=== PATIENT | male | born 1995 | race Caucasian/White ===

== ENCOUNTER 2018-01-24 02:13 | Emergency (ER) | payer MEDICAID, OTHER ==
[2018-01-24 02:27] VITALS: BP 165/120; PULSE 102; O2SAT 95
--- NOTE | 2018-01-24 02:33 | ERPHSYRPT ---
- History of Present Illness Time Seen by Provider: 01/24/18 02:28 Source: patient Exam Limitations: no limitations Patient Subjective Stated Complaint: Dental pain Triage Nursing Assessment: Patient ambulated into ED and transferred self to bed. Patient A+O X 3. Patient complains of dental pain to very back of left side of jaw. Patient states pain is 10/10. Patient states toothache started today and he was using orajel today, but the pain became unbearable. Oral cavity noted to having a tooth erupting out of the left side bottom gum. Gums noted to bed red and swollen. Physician History: The patient is a 22-year-old male with his mother complaining of worsening left lower wisdom tooth and jaw pain for at least 2 days. It has been a gradual onset. Tonight it is severe and he is not able to sleep. This wisdom tooth has caused him problems in the past but nothing as bad as tonight. He does not have a dentist at this time but will get one. He denies fever or chills. Timing/Duration: gradual onset, days (3) Severity: severe ENT Location: dental Prearrival Treatment: no prearrival treatment Modifying Factors: Improves With: nothing Associated Symptoms: tooth pain, No fever Allergies/Adverse Reactions: Penicillins Allergy (Mild, Verified 01/24/18 02:27) Hx Tetanus, Diphtheria Vaccination/Date Given: Yes Hx Influenza Vaccination/Date Given: No Hx Pneumococcal Vaccination/Date Given: No Immunizations Up to Date: Yes - Review of Systems Constitutional: No Fever, No Chills Eyes: No Symptoms Ears, Nose, & Throat: Mouth Pain Respiratory: No Cough, No Dyspnea Cardiac: No Chest Pain, No Edema, No Syncope Abdominal/Gastrointestinal: No Abdominal Pain, No Nausea, No Vomiting, No Diarrhea Genitourinary Symptoms: No Dysuria Musculoskeletal: No Back Pain, No Neck Pain Skin: No Rash Neurological: No Dizziness, No Focal Weakness, No Sensory Changes Psychological: No Symptoms Endocrine: No Symptoms Hematologic/Lymphatic: No Symptoms Immunological/Allergic: No Symptoms All Other Systems: Reviewed and Negative - Past Medical History Pertinent Past Medical History: No Neurological History: No Pertinent History ENT History: No Pertinent History Cardiac History: No Pertinent History Respiratory History: No Pertinent History Endocrine Medical History: No Pertinent History Musculoskeletal History: No Pertinent History GI Medical History: No Pertinent History History: No Pertinent History Psycho-Social History: No Pertinent History Male Reproductive Disorders: No Pertinent History Other Medical History: ANGER ISSUES - Past Surgical History Past Surgical History: No Neuro Surgical History: No Pertinent History Cardiac: No Pertinent History Respiratory: No Pertinent History Gastrointestinal: No Pertinent History Genitourinary: No Pertinent History Musculoskeletal: No Pertinent History Male Surgical History: No Pertinent History - Social History Smoking Status: Never smoker Exposure to second hand smoke: Yes Drug Use: marijuana Patient Lives Alone: No - Nursing Vital Signs Nursing Vital Signs: Initial Vital Signs Temperature 98.1 F 01/24/18 02:20 Pulse Rate 102 H 01/24/18 02:20 Respiratory Rate 18 01/24/18 02:20 Blood Pressure 165/120 01/24/18 02:20 O2 Sat by Pulse Oximetry 95 01/24/18 02:20 Pain Scale Pain Intensity 10 - Physical Exam General Appearance: moderate distress Eye Exam: bilateral eye: normal inspection, PERRL Ear Exam: bilateral ear: auricle normal Nasal Exam: normal inspection Throat Exam: dental tenderness (The gum tissue surrounding an overlying the left lower wisdom tooth is significantly inflamed and swollen and tender.) Neck Exam: supple Cardiovascular/Respiratory Exam: normal breath sounds, regular rate/rhythm Abdominal Exam: non-tender, soft Neurologic Exam: alert, oriented x 3, sensation nml, No motor deficits Skin Exam: normal color, warm, dry SpO2 Interpretation: normal SpO2: 95 Oxygen Delivery: Room Air - Departure Time of Disposition: 02:36 Departure Disposition: Home Clinical Impression: Dental abscess Condition: Stable Critical Care Time: No Referrals: DOCTOR,NO FAMILY [Primary Care Provider] - Additional Instructions: You have a abscess around one of your wisdom teeth. You were given Toradol 60 mg by IM and clindamycin 300 mg orally in the ER. Take clindamycin 300 mg 4 times a day for 10 days. Take Tylenol No. 3 one tablet every 4-6 hours as needed. Take naproxen 500 mg 2 times a day as needed. Follow-up with the dentist. Prescriptions: Clindamycin HCl 1 cap PO QID #40 capsule Codeine Phosphate/APAP #3 [Tylenol #3 Tablet] 1 tab PO Q4-6HPRN PRN #10 tablet PRN Reason: Pain Naproxen 500 mg PO BID PRN #30 tablet
[2018-01-24] MEDS ORDERED: CLEOCIN 150 MG CAPSULE PO ONE (02:36)
[2018-01-24] MEDS ORDERED: TORAdol 30 mg Injection IM ONE (02:36)
[2018-01-24] MEDS ORDERED: NORCO 5/325 MG PO ONE (02:37)
[2018-01-24] MEDS ORDERED: NORCO 5/325 MG ONE (02:41)
[2018-01-24] MEDS ORDERED: CLEOCIN 150 MG CAPSULE ONE (02:41)
[2018-01-24] MEDS ORDERED: TORAdol 30 mg Injection ONE (02:41)
== END 2018-01-24 03:02 | disposition home or self-care (01) ==
LOC: ED 02:13
DX: K04.7 Periapical abscess without sinus (principal)
CPT/HCPCS: 96372; 99283; J1885; A9270-GY